=== PATIENT | male | born 1970 | race Caucasian/White ===

== ENCOUNTER 2023-03-20 09:25 | Emergency (ER) | payer OTHER ==
[2023-03-20 09:44] LABS: #Eosinphils 0.2 thou/uL (0.0-0.7); #Monocytes 0.8 thou/uL (0.11-0.59); #Neutrophils 6.1 thou/uL (1.40-6.50); %Basophils 0.5 % (0.0-1.0); %Eosinophils 2.6 % (0.0-10.0); %Lymphocytes 15.3 % (21.0-51.0); %Monocytes 9.7 % (0.0-10.0); %Neutrophils 71.5 % (42.0-75.0); Hemoglobin 14.1 g/dL (14.0-18.0); Mean Corpuscular HGB CONC 34.6 g/dL (32.0-36.0); Mean Corpuscular Hemoglobin 33.2 pg (27.0-31.0); Mean Platelet Volume 10.6 fL (7.4-10.4); Platelet Count 164 10x3/uL (130-400); RBC Distribution Width 12.9 % (11.5-14.5); Red Blood Cell (RBC) Count 4.25 mill/uL (4.70-6.10); White Blood Cell (WBC) Count 8.5 10x3/uL (4.8-10.8)
[2023-03-20 10:11] LABS: ALT (SGPT) 32 U/L (8-55); AST (SGOT) 22 U/L (5-34); Albumin 4.4 g/dL (3.5-5.0); Alkaline Phosphatase 33 U/L (40-110); Anion Gap 12 mmol/L (10-20); BUN (Urea Nitrogen) 19 mg/dL (8.4-25.7); Bilirubin, Total 0.3 mg/dL (0.2-1.2); Calc. Creatinine Clearance 0 mL/min (70-130); Calcium 9.6 mg/dL (7.8-10.44); Carbon Dioxide 28 mmol/L (22-29); Chloride 103 mmol/L (98-107); Estimated GFR 82; Globulin 2.9 g/dL (2.4-3.5); Glucose 95 mg/dL (70-105); Potassium 4.5 mmol/L (3.5-5.1); Protein, Total 7.3 g/dL (6.0-8.3); Sodium 138 mmol/L (136-145)
== END 2023-03-20 12:15 | disposition home or self-care (01) ==
LOC: ERS 09:25
DX: R06.00 Dyspnea, unspecified (principal)
CPT/HCPCS: 71045; 80053; 83880; 84484; 85025; 93005

== ENCOUNTER 2024-04-18 00:24 | Observation (INO) | payer OTHER ==
[2024-04-18] MEDS ORDERED: Acetaminophen 650 MG Suppository PR PRN (01:41)
[2024-04-18] MEDS ORDERED: Ondansetron ODT 4 MG TAB PO PRN (01:41)
[2024-04-18] MEDS ORDERED: Ondansetron PF 4 MG/2 ML Vial IVP PRN (01:41)
[2024-04-18] MEDS ORDERED: Acetaminophen 325 MG TAB PO PRN (01:41)
[2024-04-18] MEDS ORDERED: traMADol HCl 50 MG TAB PO PRN (01:43)
[2024-04-18] MEDS ORDERED: Methocarbamol 500 MG TAB PO PRN (01:43)
[2024-04-18 02:01] VITALS: BMI 40.1
[2024-04-18] MEDS: Lorazepam 1 MG TAB PO SCH (02:01)
[2024-04-18] MEDS: hydrALAZINE 25 MG TAB PO SCH (02:01)
[2024-04-18] MEDS: Lactated Ringer's 500 ML IV SCH (02:06)
[2024-04-18 04:00] LABS: Amphetamine Not Detected (NotDetected); Barbiturates Screen Not Detected (NotDetected); Benzodiazepine Screen Not Detected (NotDetected); Cocaine Metabolite Screen Not Detected (NotDetected); Methadone Not Detected (NotDetected); Methamphetamine Not Detected (NotDetected); Opiate Screen Not Detected (NotDetected); Oxycodone Screen Not Detected (NotDetected); Phencyclidine (PCP) Not Detected (NotDetected); THC/Cannabinoid Screen Detected (NotDetected); Tricyclic Screen Not Detected (NotDetected)
[2024-04-18 05:44] LABS: #Basophils 0.03 10x3/uL (0.0-0.2); #Eosinphils Less than 0.03 10x3/uL (0.0-0.7); %Basophils 0.3 % (0.0-1.0); %Eosinophils 0.2 % (0.0-10.0); %Lymphocytes 14.1 % (21.0-51.0); %Monocytes 10.4 % (0.0-10.0); %Neutrophils 74.7 % (42.0-75.0); Hematocrit 43.6 % (42.0-52.0); Hemoglobin 14.4 g/dL (14.0-18.0); Mean Corpuscular Hemoglobin 32.7 pg (27.0-31.0); Mean Corpuscular Volume 98.9 fL (78.0-98.0); Mean Platelet Volume 11.4 fL (7.4-10.4); Platelet Count 162 10x3/uL (130-400); RBC Distribution Width 13.9 % (11.5-14.5); Red Blood Cell (RBC) Count 4.41 mill/uL (4.70-6.10)
[2024-04-18 06:10] LABS: Troponin I 0.018 ng/mL (< 0.028)
[2024-04-18 06:11] LABS: Troponin I 0.015 ng/mL (< 0.028)
[2024-04-18 06:16] LABS: Lactic Acid 1.2 mmol/L (0.5-2.2)
[2024-04-18 06:19] LABS: Anion Gap 13 mmol/L (10-20); BUN (Urea Nitrogen) 16 mg/dL (8.4-25.7); Calc. Creatinine Clearance 176 mL/min (70-130); Calcium 9.1 mg/dL (7.8-10.44); Carbon Dioxide 22 mmol/L (22-29); Chloride 107 mmol/L (98-107); Estimated GFR 103; Glucose 107 mg/dL (70-105); Potassium 3.8 mmol/L (3.5-5.1); Sodium 138 mmol/L (136-145)
[2024-04-18 06:21] LABS: Hemoglobin A1c 5.3 % (4.0-6.0)
[2024-04-18] MEDS: busPIRone HCl 10 MG TAB PO SCH (09:28)
[2024-04-18] MEDS: Aspirin Chewable 81 MG TAB PO SCH (09:29)
[2024-04-18] MEDS: Lisinopril 10 MG TAB PO SCH (09:29)
[2024-04-18] MEDS: Furosemide 40 MG TAB PO SCH (09:29)
[2024-04-18] MEDS: Famotidine/PF 20 mg/2ml Vial SLOW IVP SCH (09:30)
[2024-04-18] MEDS: Famotidine 20 MG TAB PO SCH (09:30)
[2024-04-18] MEDS: Empagliflozin 25 MG TAB PO SCH (09:30)
[2024-04-18] MEDS: Gabapentin 300 MG CAP PO SCH (09:31)
[2024-04-18] MEDS: Divalproex Sodium 500 MG ER.TAB PO SCH (09:31)
[2024-04-18] MEDS ORDERED: Melatonin 3 MG TAB PO PRN (16:25)
[2024-04-18] MEDS ORDERED: traZODone HCl 50 MG TAB PO PRN (16:25)
[2024-04-18 17:39] VITALS: BP 142/82; TEMP 98.1
[2024-04-18] MEDS ORDERED: Gabapentin 300 MG CAP PO SCH (21:00)
[2024-04-18] MEDS ORDERED: Rosuvastatin 20 MG TAB PO SCH (21:00)
[2024-04-19] MEDS ORDERED: Lisinopril 20 MG TAB PO SCH (09:00)
== END 2024-04-18 17:35 | disposition home or self-care (01) ==
LOC: 2NO 00:24
PROVIDERS: ADMIT Student in an Organized Health Care Education/Training Program; ATTEND Family Medicine
PROC: B24BZZZ Ultrasonography of Heart with Aorta (ICD-10-PCS; principal; 2024-04-18)
DX: R00.0 Tachycardia, unspecified (principal); T67.5XXA Heat exhaustion, unspecified, initial encounter; F41.9 Anxiety disorder, unspecified; I11.0 Hypertensive heart disease with heart failure; I50.9 Heart failure, unspecified; G89.29 Other chronic pain; E78.5 Hyperlipidemia, unspecified; F31.9 Bipolar disorder, unspecified; F43.10 Post-traumatic stress disorder, unspecified; G40.909 Epilepsy, unspecified, not intractable, without status epilepticus; Z79.82 Long term (current) use of aspirin; Z79.84 Long term (current) use of oral hypoglycemic drugs; Z79.899 Other long term (current) drug therapy; Z91.048 Other nonmedicinal substance allergy status; Z88.8 Allergy status to other drugs, medicaments and biological substances; Z91.040 Latex allergy status; Z98.890 Other specified postprocedural states; Z91.51 Personal history of suicidal behavior
CPT/HCPCS: 36415; 80048; 80306; 82010; 83036; 83605; 84484; 85025; 93306; 94760; G0378; J7120

== ENCOUNTER 2025-06-09 08:40 | Outpatient (CLI) | payer OTHER | END 2025-06-09 08:41 | disposition home or self-care (01) | LOC: SCSMRI 08:40 | PROVIDERS: ATTEND Anesthesiology | DX: M51.9 Unspecified thoracic, thoracolumbar and lumbosacral intervertebral disc disorder (principal); E88.2 Lipomatosis, not elsewhere classified | CPT/HCPCS: 72148 ==

== ENCOUNTER 2025-07-01 15:49 | Inpatient (IN) | payer OTHER ==
[2025-07-01 16:25] LABS: #Basophils 0.04 10x3/uL (0.0-0.2); #Eosinophils 0.20 10x3/uL (0.0-0.7); #Monocytes 0.89 10x3/uL (0.11-0.59); #Neutrophils 3.77 10x3/uL (1.40-6.50); %Basophils 0.6 % (0.0-1.0); %Eosinophils 2.9 % (0.0-10.0); %Lymphocytes 29.1 % (21.0-51.0); %Monocytes 12.8 % (0.0-10.0); %Neutrophils 54.3 % (42.0-75.0); Hematocrit 43.4 % (42.0-52.0); Hemoglobin 14.2 g/dL (14.0-18.0); Mean Corpuscular Hemoglobin 31.6 pg (27.0-31.0); Mean Corpuscular Volume 96.4 fL (78.0-98.0); Platelet Count 169 10x3/uL (130-400); Red Blood Cell (RBC) Count 4.50 mill/uL (4.70-6.10); White Blood Cell (WBC) Count 6.94 10x3/uL (4.8-10.8)
[2025-07-01] MEDS ORDERED: dilTIAZem 25 MG/5 ML VIAL ONE ×2 (16:33→18:56)
[2025-07-01] MEDS ORDERED: Enoxaparin 100 MG (1 mL) SYRINGE ONE (16:39)
[2025-07-01 16:53] LABS: ALT (SGPT) 72 U/L (Less than 45); AST (SGOT) 68 U/L (11-34); Albumin 4.3 g/dL (3.1-4.5); Alkaline Phosphatase 53 U/L (40-110); Anion Gap 16 mmol/L (10-20); BUN (Urea Nitrogen) 24 mg/dL (8.4-25.7); Bilirubin, Total 0.3 mg/dL (0.3-1.2); Calc. Creatinine Clearance 0 mL/min (70-130); Calcium 9.4 mg/dL (7.8-10.44); Carbon Dioxide 28 mmol/L (22-29); Chloride 102 mmol/L (98-107); Globulin 3.2 g/dL (2.4-3.5); Glucose 105 mg/dL (70-105); Magnesium 2.2 mg/dL (1.6-2.6); Potassium 4.3 mmol/L (3.5-5.1); Sodium 142 mmol/L (136-145)
[2025-07-01] MEDS ORDERED: Acetaminophen 325 MG TAB PO PRN (19:01)
[2025-07-02] MEDS: Diltiazem HCl/D5W 125 MG in Premix 1 BAG IVPB SCH ×2 (03:12→13:55)
[2025-07-02 03:59] LABS: #Basophils 0.04 10x3/uL (0.0-0.2); #Eosinophils 0.16 10x3/uL (0.0-0.7); #Monocytes 0.80 10x3/uL (0.11-0.59); #Neutrophils 3.78 10x3/uL (1.40-6.50); %Basophils 0.6 % (0.0-1.0); %Eosinophils 2.4 % (0.0-10.0); %Lymphocytes 27.9 % (21.0-51.0); %Monocytes 12.0 % (0.0-10.0); %Neutrophils 56.9 % (42.0-75.0); Hematocrit 41.2 % (42.0-52.0); Hemoglobin 13.3 g/dL (14.0-18.0); Mean Corpuscular Hemoglobin 31.3 pg (27.0-31.0); Mean Corpuscular Volume 96.9 fL (78.0-98.0); Platelet Count 170 10x3/uL (130-400); Red Blood Cell (RBC) Count 4.25 mill/uL (4.70-6.10); White Blood Cell (WBC) Count 6.64 10x3/uL (4.8-10.8)
[2025-07-02 04:06] LABS: INR-International Normal Ratio 1.1; PTT 33.3 sec (22.9-36.1); Prothrombin Time 14.1 sec (12.0-14.7)
[2025-07-02 04:16] LABS: ALT (SGPT) 67 U/L (Less than 45); AST (SGOT) 55 U/L (11-34); Albumin 3.9 g/dL (3.1-4.5); Alkaline Phosphatase 33 U/L (40-110); Anion Gap 16 mmol/L (10-20); BUN (Urea Nitrogen) 18 mg/dL (8.4-25.7); Bilirubin, Total 0.8 mg/dL (0.3-1.2); Calc. Creatinine Clearance 0 mL/min (70-130); Calcium 9.2 mg/dL (7.8-10.44); Carbon Dioxide 24 mmol/L (22-29); Chloride 105 mmol/L (98-107); Globulin 3.1 g/dL (2.4-3.5); Glucose 103 mg/dL (70-105); Potassium 4.0 mmol/L (3.5-5.1); Sodium 141 mmol/L (136-145)
[2025-07-02 04:23] VITALS: BMI 44.4
[2025-07-02] MEDS: Enoxaparin 40 MG (0.4 mL) SYRINGE SC SCH (04:34)
[2025-07-02] MEDS: Enoxaparin 100 MG (1 mL) SYRINGE SC SCH (04:34)
[2025-07-02] MEDS: Pantoprazole 40 MG DR.TAB PO SCH (09:40)
[2025-07-02] MEDS: Spironolactone 25 MG TAB PO SCH (09:40)
[2025-07-02] MEDS: Furosemide 40 MG TAB PO SCH (09:40)
[2025-07-02] MEDS: Lisinopril 20 MG TAB PO SCH (09:41)
[2025-07-02] MEDS: Methocarbamol 500 MG TAB PO SCH (09:42)
[2025-07-02] MEDS: Aspirin 81 mg Enteric Coated Tablet PO SCH (09:42)
[2025-07-02] MEDS: Divalproex Sodium 500 MG ER.TAB PO SCH (09:42)
[2025-07-02] MEDS: Bumetanide 1 MG/4 ML VIAL IVP SCH ×2 (12:28→14:44)
[2025-07-02] MEDS: Metoprolol Tartrate 5 MG (5 mL) VIAL IVP SCH (13:47)
[2025-07-02] MEDS: Amiodarone 200 MG TAB PO SCH ×2 (14:43→21:28)
[2025-07-02] MEDS ORDERED: Diltiazem HCl/D5W 125 MG in Premix 1 BAG IVPB SCH (20:30)
[2025-07-02] MEDS: Rosuvastatin 20 MG TAB PO SCH (21:28)
[2025-07-02] MEDS: Apixaban 5 MG TAB PO SCH (21:28)
[2025-07-03 04:20] LABS: #Basophils 0.05 10x3/uL (0.0-0.2); #Eosinophils 0.16 10x3/uL (0.0-0.7); #Monocytes 1.03 10x3/uL (0.11-0.59); #Neutrophils 4.49 10x3/uL (1.40-6.50); %Basophils 0.6 % (0.0-1.0); %Eosinophils 1.9 % (0.0-10.0); %Lymphocytes 30.5 % (21.0-51.0); %Monocytes 12.4 % (0.0-10.0); %Neutrophils 54.1 % (42.0-75.0); Hematocrit 44.0 % (42.0-52.0); Hemoglobin 14.6 g/dL (14.0-18.0); Mean Corpuscular Hemoglobin 31.7 pg (27.0-31.0); Mean Corpuscular Volume 95.7 fL (78.0-98.0); Platelet Count 189 10x3/uL (130-400); Red Blood Cell (RBC) Count 4.60 mill/uL (4.70-6.10); White Blood Cell (WBC) Count 8.30 10x3/uL (4.8-10.8)
[2025-07-03 04:44] LABS: ALT (SGPT) 66 U/L (Less than 45); AST (SGOT) 46 U/L (11-34); Albumin 4.3 g/dL (3.1-4.5); Alkaline Phosphatase 32 U/L (40-110); Anion Gap 16 mmol/L (10-20); BUN (Urea Nitrogen) 27 mg/dL (8.4-25.7); Bilirubin, Total 0.9 mg/dL (0.3-1.2); Calc. Creatinine Clearance 125 mL/min (70-130); Calcium 9.6 mg/dL (7.8-10.44); Carbon Dioxide 24 mmol/L (22-29); Chloride 100 mmol/L (98-107); Globulin 3.3 g/dL (2.4-3.5); Glucose 102 mg/dL (70-105); Magnesium 2.4 mg/dL (1.6-2.6); Potassium 3.7 mmol/L (3.5-5.1); Sodium 136 mmol/L (136-145)
[2025-07-03] MEDS ORDERED: Ketamine In 0.9 % NaCl 50 MG/5 ML SYRINGE ONE (09:55)
[2025-07-03] MEDS ORDERED: PROPOFOL 200 MG/20 ML VIAL ONE (10:07)
[2025-07-03] MEDS: Amiodarone 200 MG TAB PO SCH (13:44)
[2025-07-03] MEDS: Divalproex Sodium 500 MG ER.TAB PO SCH (20:27)
[2025-07-04 03:55] LABS: #Basophils 0.05 10x3/uL (0.0-0.2); #Eosinophils 0.18 10x3/uL (0.0-0.7); #Monocytes 0.97 10x3/uL (0.11-0.59); #Neutrophils 4.56 10x3/uL (1.40-6.50); %Basophils 0.6 % (0.0-1.0); %Eosinophils 2.3 % (0.0-10.0); %Lymphocytes 26.9 % (21.0-51.0); %Monocytes 12.3 % (0.0-10.0); %Neutrophils 57.6 % (42.0-75.0); Hematocrit 43.3 % (42.0-52.0); Hemoglobin 14.4 g/dL (14.0-18.0); Mean Corpuscular Hemoglobin 31.8 pg (27.0-31.0); Mean Corpuscular Volume 95.6 fL (78.0-98.0); Platelet Count 168 10x3/uL (130-400); Red Blood Cell (RBC) Count 4.53 mill/uL (4.70-6.10); White Blood Cell (WBC) Count 7.91 10x3/uL (4.8-10.8)
[2025-07-04 04:24] LABS: ALT (SGPT) 64 U/L (Less than 45); AST (SGOT) 46 U/L (11-34); Albumin 4.3 g/dL (3.1-4.5); Alkaline Phosphatase 34 U/L (40-110); Anion Gap 18 mmol/L (10-20); BUN (Urea Nitrogen) 30 mg/dL (8.4-25.7); Bilirubin, Total 1.0 mg/dL (0.3-1.2); Calc. Creatinine Clearance 121 mL/min (70-130); Calcium 9.5 mg/dL (7.8-10.44); Carbon Dioxide 27 mmol/L (22-29); Chloride 97 mmol/L (98-107); Globulin 3.2 g/dL (2.4-3.5); Glucose 108 mg/dL (70-105); Magnesium 2.2 mg/dL (1.6-2.6); Potassium 3.6 mmol/L (3.5-5.1); Sodium 138 mmol/L (136-145)
[2025-07-04] MEDS: Magnesium Sulfate In Water 4 GM in Premix 1 BAG IVPB SCH (13:51)
[2025-07-04] MEDS: Amiodarone 200 MG TAB PO SCH (17:16)
[2025-07-05 04:01] LABS: #Basophils 0.04 10x3/uL (0.0-0.2); #Eosinophils 0.16 10x3/uL (0.0-0.7); #Monocytes 0.89 10x3/uL (0.11-0.59); #Neutrophils 4.85 10x3/uL (1.40-6.50); %Basophils 0.5 % (0.0-1.0); %Eosinophils 2.0 % (0.0-10.0); %Lymphocytes 25.1 % (21.0-51.0); %Monocytes 11.2 % (0.0-10.0); %Neutrophils 60.9 % (42.0-75.0); Hematocrit 45.0 % (42.0-52.0); Hemoglobin 14.8 g/dL (14.0-18.0); Mean Corpuscular Hemoglobin 32.4 pg (27.0-31.0); Mean Corpuscular Volume 98.5 fL (78.0-98.0); Platelet Count 179 10x3/uL (130-400); Red Blood Cell (RBC) Count 4.57 mill/uL (4.70-6.10); White Blood Cell (WBC) Count 7.96 10x3/uL (4.8-10.8)
[2025-07-05 04:50] LABS: ALT (SGPT) 69 U/L (Less than 45); AST (SGOT) 51 U/L (11-34); Albumin 4.5 g/dL (3.1-4.5); Alkaline Phosphatase 37 U/L (40-110); Anion Gap 20 mmol/L (10-20); BUN (Urea Nitrogen) 29 mg/dL (8.4-25.7); Bilirubin, Total 1.0 mg/dL (0.3-1.2); Calc. Creatinine Clearance 121 mL/min (70-130); Calcium 9.3 mg/dL (7.8-10.44); Carbon Dioxide 26 mmol/L (22-29); Chloride 95 mmol/L (98-107); Globulin 3.4 g/dL (2.4-3.5); Glucose 109 mg/dL (70-105); Magnesium 2.7 mg/dL (1.6-2.6); Potassium 3.7 mmol/L (3.5-5.1); Sodium 137 mmol/L (136-145)
[2025-07-05 08:01] VITALS: BP 133/84
[2025-07-05] MEDS: Furosemide 40 MG TAB PO SCH (08:02)
[2025-07-05 12:08] VITALS: TEMP 98.9
[2025-07-05] MEDS: Lisinopril 2.5 MG TAB PO SCH (13:00)
[2025-07-05] MEDS ORDERED: Amiodarone 200 MG TAB PO SCH (21:00)
[2025-07-06] MEDS ORDERED: Lisinopril 5 MG TAB PO SCH (09:00)
== END 2025-07-05 15:57 | disposition home or self-care (01) | DRG 308 ==
LOC: ERS 15:49 → ERHOLD 18:47 → PCU 21:24
PROVIDERS: ADMIT Family Medicine; ATTEND Family Medicine
PROC: 5A2204Z Restoration of Cardiac Rhythm, Single (ICD-10-PCS; principal; 2025-07-03)
PROC: B24BZZ4 Ultrasonography of Heart with Aorta, Transesophageal (ICD-10-PCS; 2025-07-03)
DX: I48.19 Other persistent atrial fibrillation (principal); I50.33 Acute on chronic diastolic (congestive) heart failure; N17.9 Acute kidney failure, unspecified; Z68.41 Body mass index [BMI] 40.0-44.9, adult; R45.851 Suicidal ideations; I11.0 Hypertensive heart disease with heart failure; I48.92 Unspecified atrial flutter; E78.5 Hyperlipidemia, unspecified; K21.9 Gastro-esophageal reflux disease without esophagitis; F43.10 Post-traumatic stress disorder, unspecified; F41.9 Anxiety disorder, unspecified; I87.8 Other specified disorders of veins; F32.A Depression, unspecified; R74.01 Elevation of levels of liver transaminase levels; R56.9 Unspecified convulsions; E66.01 Morbid (severe) obesity due to excess calories; Z88.8 Allergy status to other drugs, medicaments and biological substances; Z98.890 Other specified postprocedural states; Z87.11 Personal history of peptic ulcer disease; Z88.1 Allergy status to other antibiotic agents; Z91.040 Latex allergy status; Z79.82 Long term (current) use of aspirin; Z79.899 Other long term (current) drug therapy
CPT/HCPCS: 36415; 71045; 80053; 83735; 83880; 84100; 84443; 84484; 85025; 85610; 85730; 92960; 93005; 93312; 96365; 96366; 96372; 96374; 97139; J1650; J2250; J2704; J3475; J3490